=== PATIENT | female | born 1975 | race Caucasian/White ===

== ENCOUNTER 2019-01-15 07:15 | Emergency (ER) | payer MEDICAID ==
[~2019-01-15] VITALS: Ht 165.1 cm; Wt 136.1 kg
[2019-01-15] MEDS ORDERED: HYDROcodone/APAP 5/325MG 1 TAB TABLET PO ONE (07:45)
--- NOTE | 2019-01-15 08:14 | RAD ---
Three-view left ankle study Clinical indications: Patient fell today. Left ankle pain. FINDINGS: No acute fracture or dislocation or lytic process is seen. The mortise ankle joint is intact. IMPRESSION: No acute fracture. Electronically signed by: Akhil Menchaca MD (01/15/2019 8:11 AM) [facility]
--- NOTE | 2019-01-15 08:17 | PHYS DOC ---
Past Medical History Past Medical History: CHF, CVA, Diabetes-Type II, Hypertension, [place], Renal Disease Additional Past Medical Histor: STENT IN RIGHT FEM POP, Past Surgical History: Other Additional Past Surgical Histo: LEFT FEMUR FRACTURE,STENT RIGHT FEM POP,HEART CATH Alcohol Use: None Drug Use: None Adult General Chief Complaint Chief Complaint: MECHANICAL FALL HPI HPI Patient is a 43 year old female who presents to the ED with the chief complaint of mechanical fall. Patient states that she was walking on the ice and had a fall. Patient's complains of pain to her left hip, left knee, left ankle. Patient denies hitting her head or losing consciousness. Patient is complaining of pain when she tries to bend her knee. Review of Systems Review of Systems Constitutional: Denies fever or chills HENT: Denies nasal congestion, sore throat, sinus tenderness Respiratory: Denies cough or shortness of breath Cardiovascular: Denies CP GI: Denies abdominal pain, nausea, vomiting or diarrhea : Denies dysuria or hematuria Musculoskeletal: Reports pain in her left hip, left knee, left ankle Skin: Denies rash or skin lesions Neurologic: Denies headache, focal weakness or sensory changes Complete systems were reviewed and found to be within normal limits, except as documented in this note. Current Medications Current Medications Current Medications Medications (Trade) Dose Ordered Sig/Marck Start Time Stop Time Status Last Admin Dose Admin Acetaminophen/ Hydrocodone Bitart (Lortab 5/325) 1 tab 1X ONCE 01/15/19 07:45 01/15/19 07:48 DC 01/15/19 08:03 1 TAB Allergies Allergies Allergies Coded Allergies Type Severity Reaction Last Updated Verified No Known Drug Allergies 01/15/19 No Physical Exam Physical Exam Constitutional: Well developed, well nourished, no acute distress, non-toxic appearance. HENT: Normocephalic, atraumatic, normocaphalic Eyes: PERRL, EOMI Neck: Normal range of motion, no tenderness, supple Cardiovascular:Heart rate regular rhythm, no murmur Resp: Bilateral breath sounds clear to auscultation Abdomen: Soft, no tenderness, no distension Skin: Warm, dry, no erythema, no rash. Back: No tenderness, no CVA tenderness. Extremities: Tenderness in her left hip, left ankle, left knee. Neurovascularly intact in the left lower extremity. Neurologic: Alert and oriented X 3, normal motor function, normal sensory function, no focal deficits noted. Psychologic: Affect normal, judgement normal, mood normal. Current Patient Data Vital Signs Vital Signs Date Time Temp Pulse Resp B/P (MAP) Pulse Ox O2 Delivery O2 Flow Rate FiO2 01/15/19 08:03 21 96 Room Air 01/15/19 07:23 97.9 82 129/70 (89) 97.9 EKG EKG [] Radiology/Procedures Radiology/Procedures Three-view left ankle study Clinical indications: Patient fell today. Left ankle pain. FINDINGS: No acute fracture or dislocation or lytic process is seen. The mortise ankle joint is intact. IMPRESSION: No acute fracture. Electronically signed by: Akhil Menchaca MD (01/15/2019 8:11 AM) [facility] 3 view study of the left knee Clinical indications: Patient fell today. Left knee pain. FINDINGS: No acute fracture or dislocation or lytic process is seen. Surgical metallic stabilization hardware is seen within the proximal left tibia. An old healed fracture of the lateral tibial plateau is seen. There is mild degenerative spurring and joint space narrowing of the medial and lateral tibiofemoral joint compartments and patellofemoral joint compartment. IMPRESSION: No acute fracture. Electronically signed by: Akhil Menchaca MD (01/15/2019 8:15 AM) [facility] TIBIA FIBULA LEFT History: Fall today, left leg pain Comparison: None. Findings: 2 views of the left tibia-fibula are submitted. There is bilateral metallic fixation plate and 6 screws of the proximal tibia. There is osteoarthritic change of the knee. No acute fracture is identified of the left tibia fibula. There are clips of the proximal soft tissues of the left lower extremity. Impression: 1. No acute fracture is identified. There is fixation plate of the proximal tibia. There is osteoarthritic change of the knee. Electronically signed by: Marc Roldan MD (01/15/2019 8:12 AM) [id number] 2 view study of the left hip and AP view of the pelvis Clinical indications: Fell today. Left hip pain. FINDINGS: No acute fracture or dislocation or lytic process is seen. No significant arthritic change is seen. Surgical clips are seen in the left hip area. IMPRESSION: No acute fracture. Electronically signed by: Akhil Mencahca MD (01/15/2019 8:21 AM) [facility] Course & Med Decision Making Course & Med Decision Making Pertinent Imaging studies reviewed. (See chart for details) I ordered x-rays of the left hip with pelvis, left knee, left tib-fib, left ankle. X-ray shows no acute fracture. Pt says that she missed her breakfast at the [employer]. Ordered ADA meal in ED. Discussed results and plan of care with patient. Patient is instructed to follow up with PCP in one to 2 days. Appropriate discharge instructions given to patient to return to the ED or to seek immediate medical evaluation. Dragon Disclaimer Dragon Disclaimer This electronic medical record was generated, in whole or in part, using a voice recognition dictation system. Departure Departure Impression: Primary Impression: Contusion of hip, left Additional Impressions: Contusion, knee Left ankle strain Fall Disposition: 01 HOME, SELF-CARE Condition: STABLE Patient Instructions: Contusion Additional Instructions: Discussed results and plan of care with patient. Patient is instructed to follow up with PCP in one to 2 days. Appropriate discharge instructions given to patient to return to the ED or to seek immediate medical evaluation. Scripts Hydrocodone/Apap 5-325 (NORCO 5-325 TABLET) 1 Each Tablet 1 EACH PO PRN Q6HRS PRN for PAIN, #10 TAB as needed for pain Prov: YAIMA WEBER DO 01/15/19 Problem Qualifiers Primary Impression: Contusion of hip, left Encounter type: initial encounter Qualified Codes: S70.02XA - Contusion of left hip, initial encounter Additional Impressions: Contusion, knee Encounter type: initial encounter Laterality: left Qualified Codes: S80.02XA - Contusion of left knee, initial encounter Left ankle strain Encounter type: initial encounter Qualified Codes: S96.912A - Strain of unspecified muscle and tendon at ankle and foot level, left foot, initial encounter Fall Encounter type: initial encounter Qualified Codes: W19.XXXA - Unspecified fall, initial encounter YAIMA WEBER DO Jan 15, 2019 08:17
[2019-01-15 08:19] VITALS: BP 125/74
--- NOTE | 2019-01-15 08:23 | RAD ---
2 view study of the left hip and AP view of the pelvis Clinical indications: Fell today. Left hip pain. FINDINGS: No acute fracture or dislocation or lytic process is seen. No significant arthritic change is seen. Surgical clips are seen in the left hip area. IMPRESSION: No acute fracture. Electronically signed by: Akhil Menchaca MD (01/15/2019 8:21 AM) [facility]
[2019-01-15] MEDS ORDERED: HYDR-3164 PO (08:53)
== END 2019-01-15 09:43 | disposition home or self-care (01) ==
LOC: ER 07:15
DX: S96.912A Strain of unspecified muscle and tendon at ankle and foot level, left foot, initial encounter (principal); S70.02XA Contusion of left hip, initial encounter; S80.02XA Contusion of left knee, initial encounter; I11.0 Hypertensive heart disease with heart failure; I50.9 Heart failure, unspecified; I25.2 Old myocardial infarction; Z86.73 Personal history of transient ischemic attack (TIA), and cerebral infarction without residual deficits; W00.0XXA Fall on same level due to ice and snow, initial encounter; Y93.01 Activity, walking, marching and hiking; Y92.89 Other specified places as the place of occurrence of the external cause; Y99.8 Other external cause status
CPT/HCPCS: 73502; 73562; 73590; 73610; 99284

== ENCOUNTER 2019-01-18 15:51 | Emergency (ER) | payer MEDICAID ==
[~2019-01-18] VITALS: Ht 165.1 cm; Wt 136.1 kg
[~2019-01-18 15:51] MED LIST: HYDR-3164 PO
[2019-01-18 15:59] VITALS: BP 153/82
--- NOTE | 2019-01-18 16:38 | PHYS DOC ---
Past Medical History Past Medical History: CHF, CVA, Diabetes-Type II, Hypertension, [place], Renal Disease Additional Past Medical Histor: STENT IN RIGHT FEM POP, Past Surgical History: Other Additional Past Surgical Histo: LEFT FEMUR FRACTURE,STENT RIGHT FEM POP,HEART CATH Additional Information: approx. 5 ciggerates per day. Alcohol Use: None Drug Use: None Adult General Chief Complaint Chief Complaint: LOWER EXT PAIN HPI HPI Patient is a 43 year old female who presents today complaining of left lower extremity pain from an injury she sustained 3 days ago, patient states she was already evaluated in the ED, had negative x-rays and she states she would like a wheelchair prescription as well as Lidoderm patches. Patient denies any new injuries. Patient rates the pain as 8 out of 10, describes it as sharp and intermittent. States the pain is worse on weight-bearing, she states she is trying to use crutches but believes a wheelchair will be more efficient. Review of Systems Review of Systems Constitutional: Denies fever or chills [] Musculoskeletal: Reports left lower extremity pain Integument: Denies rash or skin lesions [] Neurologic: Denies headache, focal weakness or sensory changes [] All other systems were reviewed and found to be within normal limits, except as documented in this note. Allergies Allergies Allergies Coded Allergies Type Severity Reaction Last Updated Verified No Known Drug Allergies 01/15/19 No Physical Exam Physical Exam Constitutional: Well developed, well nourished, no acute distress, non-toxic appearance. [] Skin: Warm, dry, no erythema, no rash. [] Back: No tenderness, no CVA tenderness. [] Extremities: Left lower extremity with no obvious deformity, old healed surgical incisions noted on anterior left marin. Bruising noted on the anterior left marin. Tenderness on palpation of anterior as well as lateral proximal left marin. Full passive range of motion to the left lower extremity. +2 left pedal pulse. Cap refill less than 2 seconds left toes, sensation intact to the left lower extremity Neurologic: Alert and oriented X 3, normal motor function, normal sensory function, no focal deficits noted. [] Psychologic: Affect normal, judgement normal, mood normal. [] Current Patient Data Vital Signs Vital Signs Date Time Temp Pulse Resp B/P (MAP) Pulse Ox O2 Delivery O2 Flow Rate FiO2 01/18/19 15:59 97.0 88 22 153/82 (105) 97 Room Air 97.0 EKG EKG [] Radiology/Procedures Radiology/Procedures [] Course & Med Decision Making Course & Med Decision Making Pertinent Labs and Imaging studies reviewed. (See chart for details) This is a 43-year-old female patient presenting to the ED today with left lower extremity pain, patient fell down 3 days ago, had negative x-rays, is requesting Lidoderm patches as well as a wheelchair. Prescriptions were given. Follow-up with orthopedic doctor on Sunday. Dragon Disclaimer Dragon Disclaimer This electronic medical record was generated, in whole or in part, using a voice recognition dictation system. Departure Departure Impression: Primary Impression: Fall from standing Additional Impression: Contusion of left lower extremity Disposition: HOME, SELF-CARE Condition: STABLE Referrals: NO PCP (PCP) FELISA CARRERA MD follow up in one week Patient Instructions: Contusion, [id number] Additional Instructions: You were evaluated in the emergency room for ongoing left lower extremity pain after you fell. We wrote a prescription for wheelchair and Lidoderm patches. Try to ice and elevate the extremity. Problem Qualifiers Primary Impression: Fall from standing Encounter type: subsequent encounter Qualified Codes: W19.XXXD - Unspecified fall, subsequent encounter Additional Impression: Contusion of left lower extremity Encounter type: subsequent encounter Qualified Codes: S80.12XD - Contusion of left lower leg, subsequent encounter JEANNE TOMLINSON APRN Jan 18, 2019 16:38
== END 2019-01-18 17:05 | disposition home or self-care (01) ==
LOC: ER 15:51
DX: S80.12XD Contusion of left lower leg, subsequent encounter (principal); I11.0 Hypertensive heart disease with heart failure; I50.9 Heart failure, unspecified; E11.9 Type 2 diabetes mellitus without complications; I25.2 Old myocardial infarction; Z86.73 Personal history of transient ischemic attack (TIA), and cerebral infarction without residual deficits; N28.9 Disorder of kidney and ureter, unspecified; F17.210 Nicotine dependence, cigarettes, uncomplicated; W19.XXXD Unspecified fall, subsequent encounter
CPT/HCPCS: 99284